=== PATIENT | female | born 1955 | race Caucasian/White ===

== ENCOUNTER → 2017-07-18 | Outpatient (CLI) | payer BC ==
[~2017-07-18] MED LIST: ASPIRIN81 M2 PO; CYMBALTA60 MG PO; FISH OIL + D31 EACH PO; GLUCOPHAGE1000 MG PO; MULTIVITAMINS1 EAC7 PO; NAPROSYN500 MG PO; SYNTHROID50 MCG PO; TRAMADOL 50 MG50 MG PO; ZETIA10 MG PO
== END ==
LOC: RAD 03:41
DX: Z12.31 Encounter for screening mammogram for malignant neoplasm of breast (principal)

== ENCOUNTER → 2018-09-13 | Outpatient (CLI) | payer OTHER | LOC: RAD 03:00 | DX: Z12.31 Encounter for screening mammogram for malignant neoplasm of breast (principal) ==

== ENCOUNTER → 2018-09-14 | Outpatient (CLI) | payer OTHER | LOC: ULTRA 01:28 | DX: N64.89 Other specified disorders of breast (principal) ==

== ENCOUNTER 2019-06-29 10:41 | Emergency (ER) | payer OTHER ==
[~2019-06-29] VITALS: Ht 165.1 cm; Wt 70.3 kg
[2019-06-29 11:10] VITALS: BP 142/78
[2019-06-29] MEDS ORDERED: FLONASE 0.05%50 MCG NARES (11:11)
[2019-06-29] MEDS ORDERED: DOXYCYCLINE 10100 MG PO (11:11)
== END 2019-06-29 11:40 | disposition home or self-care (01) ==
LOC: ER 10:41
DX: J32.9 Chronic sinusitis, unspecified (principal); Z90.89 Acquired absence of other organs; Z88.2 Allergy status to sulfonamides; Z88.0 Allergy status to penicillin